=== PATIENT | male | born 1955 | race Caucasian/White ===

== ENCOUNTER → 2023-08-03 10:02 | Outpatient (BNVA) | payer MEDICARE, SELFPAY | PROVIDERS: PCP Nurse Practitioner Family; Referring Provider Nurse Practitioner Family; Visit Provider Dermatology | DX: R22.0 Localized swelling, mass and lump, head (principal); D48.5 Neoplasm of uncertain behavior of skin; D22.5 Melanocytic nevi of trunk; L81.4 Other melanin hyperpigmentation; L82.1 Other seborrheic keratosis; R51.9 Headache, unspecified | CPT/HCPCS: 11102; 99204 ==

== ENCOUNTER 2023-09-12 11:42 | Outpatient (CLI) | payer MEDICARE, SELFPAY ==
--- NOTE | 2023-09-12 11:47 | CT_ITS ---
WS: [id number] CT NECK WITH CONTRAST HISTORY: LOCALIZED SWELLING,MASS, LUMP,HEAD/POSTERIOR SCALP TECHNIQUE: Contiguous 2 mm axial images are performed through the neck with intravenous contrast. Sag ittal and coronal reformats are also submitted. All CT scans at [facility] use at least one o f these dose optimization techniques: automated exposure control; mA and/or kV adjustment per patient size (includes targeted exams where dose is matched to clinical indication); or iterative reconstruc tion. CONTRAST: CONTRAST: Omnipaque 350; 50 mL IV. DLP: 237.94 mGy.cm COMPARISON: None available. Nasopharynx, oropharynx, hypopharynx and larynx are unremarkable. No soft tissue masses or abnormal e nhancement. Torus tubarius and fossa of Rosenmuller and parapharyngeal fat are normal. No significant lymphadenopathy is identified. Thyroid gland and salivary glands are normally enhancing with no masses. No osseous abnormalities. There is a large fat-containing mass along the posterior RIGHT occipital bone measuring 6.9 x 2.4 cm and extending over a length of 5.8 cm. No erosion of the adjacent occipital bone. There is no enhance ment. Small mucous retention cyst anterior LEFT maxillary sinus. No air-fluid levels Lung apices are clear. IMPRESSION: 1. Negative neck CT. No adenopathy or mass. 2. Large RIGHT occipital scalp lipoma measuring 6.9 x 2.4 x 5.8 cm.
--- NOTE | 2023-09-12 11:47 | CT_ITS ---
WS: [id number] CT HEAD WITH AND WITHOUT CONTRAST HISTORY: LOCALIZED SWELLING,MASS, LUMP HEAD/POSTERIOR SCALP TECHNIQUE: Noncontrast 3.0 mm axial images obtained from the vertex to the skull base. Additional sam ging performed at 2.5 mm axial images status post IV contrast. Bone and soft tissue windows are revie wed. All CT scans at [facility] use at least one of these dose optimization techniques: autom ated exposure control; mA and/or kV adjustment per patient size (includes targeted exams where dose i s matched to clinical indication); or iterative reconstruction. CONTRAST: Omnipaque 350; 100 mL IV. DLP: 1069.51 mGy.cm COMPARISON: None available. No acute intracranial hemorrhage, edema or midline shift. Mild atrophy. No prior infarct. Ventricles are normal size. No enhancing mass or vascular malformations identified. Dural venous sinuses are normally enhancing. Visualized [place] of [place] is unremarkable. Paranasal sinuses as visualized: Clear. Mastoid air cells: Clear. Calvarium and scalp: No fractures. No erosion of the calvarium. Fat-containing mass along the posteri or RIGHT occipital lobe slightly crosses the midline. Mass does not enhance and is of fat attenuation consistent with a lipoma. Mass measures 6.1 x 2.7 cm. IMPRESSION: 1. Benign-appearing lipoma measuring 6.1 x 2.7 cm in the scalp over the RIGHT occipital bone. Fat-con taining mass with no enhancement. 2. No enhancing intracranial mass. 3. Very mild atrophy and small vessel ischemic disease.
[2023-09-12 12:32] LABS: Blood Urea Nitrogen 22 mg/dL (8-23)
[2023-09-12] MEDS: iohexol 350 mg/mL 500 mL Btl (per mL) IV (12:40)
== END 2023-09-12 11:43 | disposition home or self-care (01) ==
LOC: RAD 11:44
PROVIDERS: PCP Nurse Practitioner Family; Visit Provider Dermatology
DX: R22.0 Localized swelling, mass and lump, head (principal); D17.0 Benign lipomatous neoplasm of skin and subcutaneous tissue of head, face and neck
CPT/HCPCS: 70470; 70491; 82565; 84520; Q9967